=== PATIENT | male | born 1975 | race Caucasian/White ===

== ENCOUNTER 2019-07-05 07:17 | Emergency (ER) | payer MEDICAID ==
[~2019-07-05] VITALS: Ht 165.1 cm; Wt 70.3 kg
[~2019-07-05 07:17] MED LIST: BACI28.34 TOP; CEPH-443 PO
[2019-07-05 07:21] VITALS: BP 129/60; PULSE 59; RESP 17; Ht 165.1 cm; Wt 70.3 kg
== END 2019-07-05 07:51 | disposition home or self-care (01) ==
LOC: FTE 07:17
DX: Z48.02 Encounter for removal of sutures (principal)
CPT/HCPCS: 99281